=== PATIENT | male | born 1950 | race Caucasian/White ===

== ENCOUNTER 2023-05-26 08:36 | Inpatient (IN) | payer OTHER ==
[~2023-05-26] VITALS: Ht 180.3 cm; Wt 133.4 kg
[2023-05-26 09:50] LABS: BASO % 0.5 % (0.0-1.0); EOS # 0.1 10^3/uL (0.0-0.5); EOS % 1.5 % (0.0-3.0); HEMATOCRIT 39.5 % (42.0-52.0); HEMOGLOBIN 12.6 g/dl (13.5-17.5); LYMPH # 1.3 10^3/uL (1.5-5.0); LYMPH % 15.9 % (24.0-44.0); MEAN CORPUSCULAR HEMOGLOBIN 30.7 pg (27.0-33.0); MEAN CORPUSCULAR HGB CONC 31.9 g/dl (32.0-36.5); MEAN CORPUSCULAR VOLUME 96.3 fl (80.0-96.0); MONO # 1.1 10^3/uL (0.0-0.8); MONO % 13.3 % (2.0-8.0); NEUTROPHILS # 5.7 10^3/uL (1.5-8.5); NEUTROPHILS % 68.3 % (36.0-66.0); PLATELET COUNT, AUTOMATED 185 10^3/uL (150-450); WHITE BLOOD COUNT 8.4 10^3/uL (4.0-10.0)
[2023-05-26 10:30] LABS: BLOOD UREA NITROGEN 25 MG/DL (9-23); CALCIUM LEVEL 8.2 MG/DL (8.3-10.6); CARBON DIOXIDE LEVEL 28 MMOL/L (20-31); CHLORIDE LEVEL 108 MMOL/L (98-107); GLOMERULAR FILTRATION RATE > 60.0 (>42); GLUCOSE, FASTING 137 MG/DL (74-106); POTASSIUM SERUM 5.5 MMOL/L (3.5-5.1); SODIUM LEVEL 142 MMOL/L (136-145)
[2023-05-26] MEDS ORDERED: ISOVUE-370 76% 100ML VIAL As Ordered ONE (11:11)
[2023-05-26] MEDS ORDERED: GABA600T4 PO (12:34)
[2023-05-26] MEDS ORDERED: BUSP15TA47 PO (12:34)
[2023-05-26] MEDS ORDERED: WARF-23 PO (12:34)
[2023-05-26] MEDS ORDERED: TRAZ-257 PO (12:34)
[2023-05-26] MEDS ORDERED: TAMS1CAP17 PO (12:34)
[2023-05-26] MEDS ORDERED: FINA5TAB2 PO (12:34)
[2023-05-26] MEDS ORDERED: SPIR1CAP INH (12:34)
[2023-05-26] MEDS ORDERED: SYST1SOL OP (12:34)
[2023-05-26] MEDS ORDERED: CETI-24 PO (12:34)
[2023-05-26] MEDS ORDERED: OMEP-173 PO (12:34)
[2023-05-26] MEDS ORDERED: OMEG10002 PO (12:34)
[2023-05-26] MEDS ORDERED: GUAI400T9 PO (12:34)
[2023-05-26] MEDS ORDERED: ATOR80TA59 PO (12:34)
[2023-05-26] MEDS ORDERED: FURO40TA2 PO (12:34)
[2023-05-26] MEDS ORDERED: VITA200016 PO (12:34)
[2023-05-26] MEDS ORDERED: DULO1CAP6 PO (12:34)
[2023-05-26] MEDS ORDERED: QUET400T2 PO (12:34)
[2023-05-26] MEDS ORDERED: ACET1TAB55 PO (12:34)
[2023-05-26] MEDS ORDERED: MONT10TA97 PO (12:34)
[2023-05-26] MEDS ORDERED: METH-1165 PO (12:34)
[2023-05-26] MEDS ORDERED: XALA0.007 OP (12:34)
[2023-05-26] MEDS ORDERED: MELA3TAB24 PO (12:34)
[2023-05-26 13:30] LABS: INR 2.89; PROTHROMBIN TIME 29.6 SECONDS (12.5-14.5)
[2023-05-26] MEDS ORDERED: LevoFLOXacin 750 MG TABLET PO ONE (13:50)
[2023-05-26] MEDS ORDERED: SPIR12.9 INH (14:50)
[2023-05-26] MEDS ORDERED: MED REC IN PROGRESS XX SCH (14:55)
[2023-05-26 15:16] LABS: ALKALINE PHOSPHATASE 161 U/L (46-116); ALT/SGPT 75 U/L (7.0-40); AST/SGOT 82 U/L (<34); BILIRUBIN,DIRECT 0.1 MG/DL (<0.4); BILIRUBIN,TOTAL 0.3 MG/DL (0.3-1.2); CK-MB VALUE MASS < 1.0 NG/ML (<3.6); CPK CREATINE PHOSPHOKINASE 156 U/L (46-171); MB/CK RELATIVE INDEX 0.64 (< OR =4); TOTAL PROTEIN 6.7 G/DL (5.7-8.2)
[2023-05-26] MEDS ORDERED: FUROSEMIDE 40 MG TAB PO ONE (15:25)
[2023-05-26] MEDS ORDERED: METOPROLOL TART 25 MG TABLET PO SCH (15:30)
[2023-05-26] MEDS ORDERED: BUTA-198 PO (15:31)
[2023-05-26] MEDS ORDERED: VITA200030 PO (15:35)
[2023-05-26] MEDS: dexAMETHasone 20MG/5ML VIAL IV SCH (15:47)
[2023-05-26] MEDS ORDERED: LUBR1DRO10 OP (15:55)
[2023-05-26] MEDS ORDERED: ALBU8.5H INH (15:55)
[2023-05-26 15:57] LABS: MAGNESIUM LEVEL 1.9 MG/DL (1.8-2.4)
[2023-05-26] MEDS ORDERED: MILK140C2 PO (15:58)
[2023-05-26 15:59] LABS: PROCALCITONIN 0.07 ng/ml
[2023-05-26 16:01] LABS: THYROID STIMULATING HORMONE 1.128 uIU/ML (0.55-4.78)
[2023-05-26] MEDS ORDERED: ALBUTEROL 90 MCG/ACT 8GM HFA INHALER INH PRN (16:05)
[2023-05-26] MEDS ORDERED: traZODone 100 MG TAB PO PRN (16:05)
[2023-05-26] MEDS ORDERED: FIORICET TAB PO PRN (16:05)
[2023-05-26] MEDS ORDERED: HOME MED LIST COMPLETE! XX SCH (16:10)
[2023-05-26 16:57] LABS: HEMOGLOBIN A1c 5.6 % (4.0-6.0)
[2023-05-26] MEDS ORDERED: WARFARIN SOD 5MG TAB PO SCH (17:00)
[2023-05-26] MEDS ORDERED: IPRATROPIUM 0.5MG/ALBUTEROL 2.5MG INH SOL UD 3ML (DUONEB) NEB SCH ×2 (18:00→20:00)
[2023-05-26] MEDS: CEFTAROLINE FOSAMIL 600 MG in D5W MINI-BAG PLUS 50 ML IV SCH (18:10)
[2023-05-26] MEDS: SYMBICORT 160/4.5MCG INHALER 6GM INH SCH (20:32)
[2023-05-26] MEDS: IPRATROPIUM 0.5MG/ALBUTEROL 2.5MG INH SOL UD 3ML (DUONEB) NEB SCH ×2 (20:32→23:16)
[2023-05-26] MEDS: QUEtiapine FUMARATE 200 MG TAB PO SCH (21:05)
[2023-05-26] MEDS: busPIRone 5 MG TAB PO SCH (21:05)
[2023-05-26] MEDS: GABAPENTIN 300 MG CAP PO SCH (21:05)
[2023-05-26] MEDS: DOXYCYCLINE HYCLATE 100MG TABLET PO SCH (21:05)
[2023-05-26] MEDS: MONTELUKAST 10 MG TAB PO SCH (21:05)
[2023-05-26] MEDS: guaiFENesin 200 MG TAB PO SCH (21:15)
[2023-05-26] MEDS: LATANOPROST 0.005% OPHTH SOLN 2.5 ML OU SCH (21:16)
[2023-05-26 22:35] VITALS: BP 134/64; TEMP 97.8; O2SAT 95
[2023-05-27] MEDS: IPRATROPIUM 0.5MG/ALBUTEROL 2.5MG INH SOL UD 3ML (DUONEB) NEB SCH ×6 (03:59→23:15)
[2023-05-27 04:00] VITALS: BP 135/83; TEMP 97.9; O2SAT 97
[2023-05-27] MEDS: dexAMETHasone 20MG/5ML VIAL IV SCH ×2 (04:30→18:40)
[2023-05-27] MEDS: CEFTAROLINE FOSAMIL 600 MG in D5W MINI-BAG PLUS 50 ML IV SCH ×2 (04:30→19:41)
[2023-05-27 04:50] LABS: HEMATOCRIT 36.9 % (42.0-52.0); HEMOGLOBIN 11.7 g/dl (13.5-17.5); MEAN CORPUSCULAR HGB CONC 31.7 g/dl (32.0-36.5); MEAN CORPUSCULAR VOLUME 94.6 fl (80.0-96.0); PLATELET COUNT, AUTOMATED 208 10^3/uL (150-450); WHITE BLOOD COUNT 7.5 10^3/uL (4.0-10.0)
[2023-05-27 05:05] LABS: PROTHROMBIN TIME 30.4 SECONDS (12.5-14.5)
[2023-05-27 05:17] LABS: BLOOD UREA NITROGEN 20 MG/DL (9-23); CALCIUM LEVEL 8.7 MG/DL (8.3-10.6); CARBON DIOXIDE LEVEL 26 MMOL/L (20-31); CHLORIDE LEVEL 108 MMOL/L (98-107); GLOMERULAR FILTRATION RATE > 60.0 (>42); GLUCOSE, FASTING 134 MG/DL (74-106); MAGNESIUM LEVEL 1.9 MG/DL (1.8-2.4); POTASSIUM SERUM 4.1 MMOL/L (3.5-5.1); SODIUM LEVEL 144 MMOL/L (136-145)
[2023-05-27] MEDS: SYMBICORT 160/4.5MCG INHALER 6GM INH SCH ×2 (07:14→19:32)
[2023-05-27 08:32] VITALS: BP 139/66; TEMP 97.8; O2SAT 95
[2023-05-27 08:53] LABS: ALBUMIN 2.7 G/DL (3.2-5.2); ALKALINE PHOSPHATASE 153 U/L (46-116); ALT/SGPT 64 U/L (7.0-40); AST/SGOT 49 U/L (<34); BILIRUBIN,DIRECT 0.1 MG/DL (<0.4); BILIRUBIN,TOTAL 0.2 MG/DL (0.3-1.2); TOTAL PROTEIN 6.3 G/DL (5.7-8.2)
[2023-05-27] MEDS: FINASTERIDE 5MG TAB PO SCH (09:00)
[2023-05-27] MEDS ORDERED: FUROSEMIDE 40 MG TAB PO SCH (09:00)
[2023-05-27] MEDS ORDERED: FUROSEMIDE 40MG/4ML VIAL IV SCH (09:00)
[2023-05-27] MEDS: TIOTROPIUM INHALER/CAPSULE (SPIRIVA) INH SCH (09:08)
[2023-05-27] MEDS: IPRATROPIUM 0.5MG/ALBUTEROL 2.5MG INH SOL UD 3ML (DUONEB) NEB PRN (09:13)
[2023-05-27 11:21] VITALS: BP 138/74; TEMP 98.1; O2SAT 99
[2023-05-27] MEDS: TAMSULOSIN 0.4 MG CAP PO SCH (11:26)
[2023-05-27] MEDS: GABAPENTIN 300 MG CAP PO SCH ×3 (11:27→20:25)
[2023-05-27] MEDS: busPIRone 5 MG TAB PO SCH ×3 (11:27→20:25)
[2023-05-27] MEDS: guaiFENesin 200 MG TAB PO SCH ×2 (11:28→20:25)
[2023-05-27] MEDS: ATORVASTATIN 20 MG TAB PO SCH (11:28)
[2023-05-27] MEDS: DULoxetine 30MG CAPSULE (CYMBALTA) PO SCH (11:28)
[2023-05-27] MEDS: METOPROLOL TART 25 MG TABLET PO SCH ×2 (11:28→20:26)
[2023-05-27] MEDS: DOXYCYCLINE HYCLATE 100MG TABLET PO SCH ×2 (11:30→20:26)
[2023-05-27] MEDS: methocarbamoL 750 MG TAB PO PRN (11:35)
[2023-05-27] MEDS: OMEPRAZOLE 20MG CAP PO PRN (11:35)
[2023-05-27 15:37] VITALS: BP 138/70; TEMP 98.7; O2SAT 95
[2023-05-27] MEDS ORDERED: WARFARIN SOD 5MG TAB PO SCH (17:00)
[2023-05-27 19:46] VITALS: BP 114/56; TEMP 97.2; O2SAT 99
[2023-05-27] MEDS: QUEtiapine FUMARATE 200 MG TAB PO SCH (20:25)
[2023-05-27] MEDS: MONTELUKAST 10 MG TAB PO SCH (20:26)
[2023-05-27] MEDS: LATANOPROST 0.005% OPHTH SOLN 2.5 ML OU SCH (20:26)
[2023-05-27 23:13] VITALS: BP 142/77; TEMP 97.7; O2SAT 98
[2023-05-27] MEDS ORDERED: LORazepam 2 MG/ML 1ML VIAL IV STA (23:53)
[2023-05-28 00:01] LABS: ABG BASE EXCESS -1.3 (-2.0-2.0); ABG HCO3 25.1 MMOL/L (22.0-26.0); ABG O2 SATURATION 95.9 % (95.0-99.0); ABG PARTIAL PRESSURE CO2 48.9 mmHg (35.0-45.0); ABG PARTIAL PRESSURE O2 87.3 mmHg (75.0-100.0); ABG STANDARD HCO3 23.4 MMOL/L. (22.0-26.0); ABG TOTAL CO2 26.6 MMOL/L (23.0-31.0); ABG pH (ARTERIAL) 7.328 UNITS (7.350-7.450)
[2023-05-28] MEDS: IPRATROPIUM 0.5MG/ALBUTEROL 2.5MG INH SOL UD 3ML (DUONEB) NEB SCH ×5 (03:10→19:47)
[2023-05-28] MEDS: dexAMETHasone 20MG/5ML VIAL IV SCH (03:11)
[2023-05-28 03:20] VITALS: BP 141/71; TEMP 97; O2SAT 98
[2023-05-28 05:11] LABS: HEMOGLOBIN 11.7 g/dl (13.5-17.5); MEAN CORPUSCULAR HEMOGLOBIN 30.2 pg (27.0-33.0); MEAN CORPUSCULAR HGB CONC 31.6 g/dl (32.0-36.5); MEAN CORPUSCULAR VOLUME 95.6 fl (80.0-96.0); PLATELET COUNT, AUTOMATED 222 10^3/uL (150-450); RED BLOOD COUNT 3.87 10^6/uL (4.30-6.10); WHITE BLOOD COUNT 6.6 10^3/uL (4.0-10.0)
[2023-05-28 05:33] LABS: INR 2.93; PROTHROMBIN TIME 29.9 SECONDS (12.5-14.5)
[2023-05-28 05:36] LABS: CALCIUM LEVEL 8.6 MG/DL (8.3-10.6); CREATININE FOR GFR 1.43 MG/DL (0.70-1.30); GLOMERULAR FILTRATION RATE 51.5 (>42); POTASSIUM SERUM 4.6 MMOL/L (3.5-5.1)
[2023-05-28] MEDS: CEFTAROLINE FOSAMIL 600 MG in D5W MINI-BAG PLUS 50 ML IV SCH ×2 (06:19→17:50)
[2023-05-28] MEDS: TIOTROPIUM INHALER/CAPSULE (SPIRIVA) INH SCH (07:18)
[2023-05-28] MEDS: SYMBICORT 160/4.5MCG INHALER 6GM INH SCH ×2 (07:18→19:47)
[2023-05-28 07:43] VITALS: BP 121/68; TEMP 98.6; O2SAT 96
[2023-05-28] MEDS ORDERED: NS 1,000 ML IV SCH (09:00)
[2023-05-28] MEDS: guaiFENesin ER 600 MG TAB PO SCH ×2 (09:56→21:49)
[2023-05-28] MEDS: DULoxetine 30MG CAPSULE (CYMBALTA) PO SCH (09:56)
[2023-05-28] MEDS: GABAPENTIN 300 MG CAP PO SCH ×3 (09:56→21:49)
[2023-05-28] MEDS: predniSONE 20 MG TAB PO SCH (09:56)
[2023-05-28] MEDS: DOXYCYCLINE HYCLATE 100MG TABLET PO SCH ×2 (09:56→21:49)
[2023-05-28] MEDS: TAMSULOSIN 0.4 MG CAP PO SCH (09:56)
[2023-05-28] MEDS: METOPROLOL TART 25 MG TABLET PO SCH ×2 (09:56→21:49)
[2023-05-28] MEDS: FINASTERIDE 5MG TAB PO SCH (09:57)
[2023-05-28] MEDS: OMEPRAZOLE 20MG CAP PO PRN (09:57)
[2023-05-28] MEDS: busPIRone 5 MG TAB PO SCH ×3 (09:57→21:49)
[2023-05-28] MEDS: methocarbamoL 750 MG TAB PO PRN (09:57)
[2023-05-28] MEDS: ATORVASTATIN 20 MG TAB PO SCH (09:57)
[2023-05-28 11:45] VITALS: BP 128/87; TEMP 98.2; O2SAT 91
[2023-05-28 15:19] VITALS: BP 107/53; TEMP 97; O2SAT 92
[2023-05-28] MEDS ORDERED: WARFARIN SOD 2.5MG TAB PO SCH (17:00)
[2023-05-28] MEDS: IPRATROPIUM 0.5MG/ALBUTEROL 2.5MG INH SOL UD 3ML (DUONEB) NEB PRN (17:03)
[2023-05-28 20:49] VITALS: BP 156/70; TEMP 98.2; O2SAT 92
[2023-05-28] MEDS: MONTELUKAST 10 MG TAB PO SCH (21:48)
[2023-05-28] MEDS: LATANOPROST 0.005% OPHTH SOLN 2.5 ML OU SCH (21:48)
[2023-05-28] MEDS: QUEtiapine FUMARATE 200 MG TAB PO SCH (21:49)
[2023-05-29] VITALS: BP 142/74; TEMP 97; O2SAT 94
[2023-05-29] MEDS: IPRATROPIUM 0.5MG/ALBUTEROL 2.5MG INH SOL UD 3ML (DUONEB) NEB SCH ×4 (01:37→19:50)
[2023-05-29 04:08] VITALS: BP 164/97; TEMP 97.6; O2SAT 94
[2023-05-29 05:40] LABS: HEMATOCRIT 38.4 % (42.0-52.0); MEAN CORPUSCULAR HEMOGLOBIN 30.1 pg (27.0-33.0); MEAN CORPUSCULAR HGB CONC 31.3 g/dl (32.0-36.5); MEAN CORPUSCULAR VOLUME 96.2 fl (80.0-96.0); PLATELET COUNT, AUTOMATED 246 10^3/uL (150-450); RED BLOOD COUNT 3.99 10^6/uL (4.30-6.10); WHITE BLOOD COUNT 8.1 10^3/uL (4.0-10.0)
[2023-05-29 05:45] LABS: CALCIUM LEVEL 9.1 MG/DL (8.3-10.6); CREATININE FOR GFR 1.33 MG/DL (0.70-1.30); MAGNESIUM LEVEL 2.1 MG/DL (1.8-2.4); POTASSIUM SERUM 4.4 MMOL/L (3.5-5.1)
[2023-05-29 06:03] LABS: INR 4.41; PROTHROMBIN TIME 41.1 SECONDS (12.5-14.5)
[2023-05-29] MEDS: CEFTAROLINE FOSAMIL 600 MG in D5W MINI-BAG PLUS 50 ML IV SCH (06:42)
[2023-05-29] MEDS: SYMBICORT 160/4.5MCG INHALER 6GM INH SCH ×2 (07:24→19:50)
[2023-05-29] MEDS: TIOTROPIUM INHALER/CAPSULE (SPIRIVA) INH SCH (07:24)
[2023-05-29 07:32] VITALS: BP 138/77; TEMP 96.6; O2SAT 97
[2023-05-29] MEDS: busPIRone 5 MG TAB PO SCH ×3 (08:42→21:33)
[2023-05-29] MEDS: FINASTERIDE 5MG TAB PO SCH (08:43)
[2023-05-29] MEDS: guaiFENesin ER 600 MG TAB PO SCH ×2 (08:43→21:34)
[2023-05-29] MEDS: GABAPENTIN 300 MG CAP PO SCH ×3 (08:43→21:33)
[2023-05-29] MEDS: METOPROLOL TART 25 MG TABLET PO SCH ×2 (08:43→21:33)
[2023-05-29] MEDS: predniSONE 20 MG TAB PO SCH (08:43)
[2023-05-29] MEDS: DULoxetine 30MG CAPSULE (CYMBALTA) PO SCH (08:43)
[2023-05-29] MEDS: DOXYCYCLINE HYCLATE 100MG TABLET PO SCH ×2 (08:43→21:33)
[2023-05-29] MEDS: TAMSULOSIN 0.4 MG CAP PO SCH (08:43)
[2023-05-29] MEDS: ATORVASTATIN 20 MG TAB PO SCH (08:44)
[2023-05-29 11:24] VITALS: BP 155/69; TEMP 96.6; O2SAT 90
[2023-05-29] MEDS ORDERED: PHYTONADIONE 2.5 MG **1/2 TAB PO ONE (12:30)
[2023-05-29] MEDS: amLODIPine 5 MG TAB PO SCH (15:38)
[2023-05-29 15:39] VITALS: BP 142/81; TEMP 97.9; O2SAT 91
[2023-05-29 20:17] VITALS: BP 118/57; TEMP 97.6; O2SAT 93
[2023-05-29] MEDS: CEFDINIR 300 MG CAP (OMNICEF) PO SCH (21:32)
[2023-05-29] MEDS: methocarbamoL 750 MG TAB PO PRN (21:33)
[2023-05-29] MEDS: LATANOPROST 0.005% OPHTH SOLN 2.5 ML OU SCH (21:34)
[2023-05-29] MEDS: MONTELUKAST 10 MG TAB PO SCH (21:34)
[2023-05-29] MEDS: QUEtiapine FUMARATE 200 MG TAB PO SCH (21:40)
[2023-05-30] MEDS: IPRATROPIUM 0.5MG/ALBUTEROL 2.5MG INH SOL UD 3ML (DUONEB) NEB SCH ×3 (01:53→13:22)
[2023-05-30 04:16] VITALS: BP 165/92; TEMP 98.2; O2SAT 94
[2023-05-30 07:00] LABS: HEMOGLOBIN 12.7 g/dl (13.5-17.5); MEAN CORPUSCULAR HEMOGLOBIN 30.7 pg (27.0-33.0); MEAN CORPUSCULAR HGB CONC 31.8 g/dl (32.0-36.5); MEAN CORPUSCULAR VOLUME 96.6 fl (80.0-96.0); PLATELET COUNT, AUTOMATED 263 10^3/uL (150-450); RED BLOOD COUNT 4.14 10^6/uL (4.30-6.10); WHITE BLOOD COUNT 7.6 10^3/uL (4.0-10.0)
[2023-05-30 07:14] LABS: INR 2.65; PROTHROMBIN TIME 27.6 SECONDS (12.5-14.5)
[2023-05-30 07:28] LABS: BLOOD UREA NITROGEN 36 MG/DL (9-23); CALCIUM LEVEL 9.3 MG/DL (8.3-10.6); CARBON DIOXIDE LEVEL 29 MMOL/L (20-31); CHLORIDE LEVEL 108 MMOL/L (98-107); CREATININE FOR GFR 1.11 MG/DL (0.70-1.30); GLOMERULAR FILTRATION RATE > 60.0 (>42); GLUCOSE, FASTING 103 MG/DL (74-106); MAGNESIUM LEVEL 2.2 MG/DL (1.8-2.4); POTASSIUM SERUM 4.8 MMOL/L (3.5-5.1); SODIUM LEVEL 143 MMOL/L (136-145)
[2023-05-30] MEDS: TIOTROPIUM INHALER/CAPSULE (SPIRIVA) INH SCH (07:44)
[2023-05-30] MEDS: SYMBICORT 160/4.5MCG INHALER 6GM INH SCH (07:44)
[2023-05-30 07:56] VITALS: BP 150/66; TEMP 97.8; O2SAT 92
[2023-05-30] MEDS: predniSONE 20 MG TAB PO SCH (08:34)
[2023-05-30] MEDS: guaiFENesin ER 600 MG TAB PO SCH (08:34)
[2023-05-30] MEDS: GABAPENTIN 300 MG CAP PO SCH (08:34)
[2023-05-30] MEDS: CEFDINIR 300 MG CAP (OMNICEF) PO SCH (08:34)
[2023-05-30] MEDS: ATORVASTATIN 20 MG TAB PO SCH (08:34)
[2023-05-30] MEDS: TAMSULOSIN 0.4 MG CAP PO SCH (08:35)
[2023-05-30] MEDS: METOPROLOL TART 25 MG TABLET PO SCH (08:35)
[2023-05-30] MEDS: DOXYCYCLINE HYCLATE 100MG TABLET PO SCH (08:35)
[2023-05-30 08:36] VITALS: BP 150/66
[2023-05-30] MEDS: FINASTERIDE 5MG TAB PO SCH (08:36)
[2023-05-30] MEDS: DULoxetine 30MG CAPSULE (CYMBALTA) PO SCH (08:36)
[2023-05-30] MEDS: amLODIPine 5 MG TAB PO SCH (08:36)
[2023-05-30] MEDS: busPIRone 5 MG TAB PO SCH (08:36)
[2023-05-30] MEDS ORDERED: DOXY100T PO (11:26)
[2023-05-30] MEDS ORDERED: PRED10TA2 PO (11:26)
[2023-05-30] MEDS ORDERED: SYMB16INH INH (11:26)
[2023-05-30] MEDS ORDERED: METO1TAB87 PO (11:26)
[2023-05-30] MEDS ORDERED: AMLO1TAB24 PO (11:26)
[2023-05-30] MEDS ORDERED: CEFD300CAP PO (11:26)
[2023-05-31] MEDS ORDERED: predniSONE 10MG TAB PO SCH (09:00)
== END 2023-05-30 14:03 | disposition left against medical advice (07) | DRG 193 ==
LOC: M ED 08:36 → M ED INP 15:16 → ENRESERV 21:50 → M PCU 22:34
PROVIDERS: ADMIT Internal Medicine Nephrology; ATTEND Internal Medicine
PROC: B246ZZZ Ultrasonography of Right and Left Heart (ICD-10-PCS; principal; 2023-05-29)
DX: J18.9 Pneumonia, unspecified organism (principal); J96.91 Respiratory failure, unspecified with hypoxia; D68.61 Antiphospholipid syndrome; J44.1 Chronic obstructive pulmonary disease with (acute) exacerbation; J44.0 Chronic obstructive pulmonary disease with (acute) lower respiratory infection; I27.82 Chronic pulmonary embolism; N17.9 Acute kidney failure, unspecified; E66.2 Morbid (severe) obesity with alveolar hypoventilation; Z68.41 Body mass index [BMI] 40.0-44.9, adult; I12.9 Hypertensive chronic kidney disease with stage 1 through stage 4 chronic kidney disease, or unspecified chronic kidney disease; E78.5 Hyperlipidemia, unspecified; N18.31 Chronic kidney disease, stage 3a; L08.9 Local infection of the skin and subcutaneous tissue, unspecified; M54.50 Low back pain, unspecified; G89.29 Other chronic pain; I48.91 Unspecified atrial fibrillation; G62.9 Polyneuropathy, unspecified; S81.801A Unspecified open wound, right lower leg, initial encounter; E87.5 Hyperkalemia; R59.1 Generalized enlarged lymph nodes; K76.0 Fatty (change of) liver, not elsewhere classified; K21.9 Gastro-esophageal reflux disease without esophagitis; F41.9 Anxiety disorder, unspecified; F32.A Depression, unspecified; R91.8 Other nonspecific abnormal finding of lung field; R73.01 Impaired fasting glucose; Z87.891 Personal history of nicotine dependence; Z86.718 Personal history of other venous thrombosis and embolism; Z90.49 Acquired absence of other specified parts of digestive tract; X58.XXXA Exposure to other specified factors, initial encounter; Y92.9 Unspecified place or not applicable; Z79.01 Long term (current) use of anticoagulants; Z79.899 Other long term (current) drug therapy; Z88.0 Allergy status to penicillin; Z88.2 Allergy status to sulfonamides; Z20.822 Contact with and (suspected) exposure to COVID-19